=== PATIENT | male | born 1990 ===

== ENCOUNTER 2020-11-09 19:13 | Emergency (ER) | payer SELFPAY ==
[~2020-11-09] VITALS: Ht 182.9 cm; Wt 74.4 kg
--- NOTE | 2020-11-09 19:21 | NUR ---
NIL X 1, PT IN RESTROOM
--- NOTE | 2020-11-09 19:26 | NUR ---
NIL X 2.
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
[2020-11-09] MEDS ORDERED: HYDROcodone/APAP 5/325 TABLET ONE (21:21)
[2020-11-09] MEDS ORDERED: HYDROcodone/APAP 5/325 TABLET PO ONE (21:30)
--- NOTE | 2020-11-09 21:43 | NUR ---
Pt resting comfortably at this time, denies needs, medicated w/PO pain meds.Tolerating well. Awaiting orders.
--- NOTE | 2020-11-09 21:57 | NUR ---
RHIANNA () [phone] WANTS UPDATES
[2020-11-09 22:12] VITALS: BP 145/104
== END 2020-11-09 22:28 | disposition home or self-care (01) ==
LOC: ED 19:45
DX: R10.9 Unspecified abdominal pain (principal); F12.10 Cannabis abuse, uncomplicated; Z72.9 Problem related to lifestyle, unspecified; R00.0 Tachycardia, unspecified; Z87.891 Personal history of nicotine dependence
CPT/HCPCS: 99283